=== PATIENT | female | born 1995 | race Caucasian/White ===

== ENCOUNTER 2020-09-07 22:07 | Emergency (ER) | payer OTHER ==
[~2020-09-07] VITALS: Ht 147.3 cm; Wt 115.0 kg
[2020-09-07 22:07] VITALS: BP 129/72
--- NOTE | 2020-09-07 23:36 | RAD ---
Exam: Left foot 3 views INDICATION: Laceration to dorsal aspect of the left foot after fall TECHNIQUE: Frontal, lateral and oblique views of the left foot Comparisons: None FINDINGS: Bone mineralization is normal. No acute or healed fractures. Soft tissues are unremarkable. Joint spa gaurav are well-maintained. IMPRESSION: No acute osseous abnormality. Electronically signed by: Elsy Oh MD (09/07/2020 11:34 PM) MJ
[2020-09-08] MEDS ORDERED: LIDOCAINE 1%/EPI 1:100,000 20 ML VIAL. SQ ONE
[2020-09-08] MEDS ORDERED: CEPH-264 PO (00:22)
--- NOTE | 2020-09-08 00:23 | ED.ADGEN ---
Past Medical History Past Medical History: Anemia Past Surgical History: Smoking Status: Never Smoker Alcohol Use: None General Adult EDM: Chief Complaint: LACERATION/AVULSION HPI: HPI: Patient is a 25 year old female, who presents to the emergency department via EMS with reports of a laceration to the top of her left foot. Patient states she was standing on a table that had a glass insert when her foot went through the glass insert. She denies any loss of consciousness. She denies any decreased sensation, numbness, tingling, or decreased range of motion of the affected foot. Patient reports her last tetanus was less than 5 years ago. She currently rates her pain a 10 out of 10 on pain scale, patient reports the discomfort increases with movement and palpation, she denies any alleviating factors. Patient states she is currently 6 days , she had a at [facility], she denies any abdominal pain or injury to her C- section site. Review of Systems: Review of Systems: Complete ROS is negative unless otherwise noted in HPI. Current Medications: Current Medications Medications (Trade) Dose Ordered Sig/Rakesh Start Time Stop Time Status Last Admin Dose Admin Lidocaine/ Epinephrine (LIDOCAINE 1%-EPI 1:100,000 Multi-Dose) 20 ml 1X ONCE 09/08/20 00:00 09/08/20 00:01 DC 09/07/20 23:46 20 ML Allergies: Allergies: Allergies Coded Allergies Type Severity Reaction Last Updated Verified No Known Drug Allergies 09/07/20 No Physical Exam: PE: See Above Constitutional: Well developed, well nourished, no acute distress, non-toxic appearance. [] HENT: Normocephalic, atraumatic, bilateral external ears normal, nose normal. [] Eyes: PERRLA, EOMI, conjunctiva normal, no discharge. [] Neck: Normal range of motion, no stridor. [] Cardiovascular:Heart rate regular rhythm Lungs & Thorax: Respirations even and unlabored, no retractions, no respiratory distress Skin: Warm, dry, no erythema, no rash; 10 cm laceration to the dorsal surface of the left foot, no visible foreign bodies, bleeding controlled bandage in place; there is 1/2 cm x 1 cm avulsion to the distal plantar aspect of the left fourth toe, no visible foreign body, no active bleeding.. [] Extremities: No cyanosis, ROM intact, 2+ edema BLE; left foot full extension, full flexion, 2+ pedal and posterior tibial pulses, cap refill less than 2 seconds, sensation intact. Neurologic: Alert and oriented X 3, no focal deficits noted. [] Psychologic: Affect normal, judgement normal, mood normal. [] Current Patient Data: Vital Signs: Vital Signs Date Time Temp Pulse Resp B/P (MAP) Pulse Ox O2 Delivery O2 Flow Rate FiO2 09/07/20 22:07 98.7 90 20 129/72 (91) 98 Room Air 98.7 EKG: EKG: [] Heart Score: Risk Factors: Risk Factors: DM, Current or recent (<one month) smoker, HTN, HLP, family history of CAD, obesity. Risk Scores: Score 0 - 3: 2.5% MACE over next 6 weeks - Discharge Home Score 4 - 6: 20.3% MACE over next 6 weeks - Admit for Clinical Observation Score 7 - 10: 72.7% MACE over next 6 weeks - Early Invasive Strategies Radiology/Procedures: Radiology/Procedures: PROCEDURE: FOOT LEFT 3V Exam: Left foot 3 views INDICATION: Laceration to dorsal aspect of the left foot after fall TECHNIQUE: Frontal, lateral and oblique views of the left foot Comparisons: None FINDINGS: Bone mineralization is normal. No acute or healed fractures. Soft tissues are unremarkable. Joint spaces are well-maintained. IMPRESSION: No acute osseous abnormality.[] Laceration Repair by me: Anesthesia: 1% lidocaine locally with epinephrine Location: Volar aspect of left foot Tendon/Joint/Nerves: No injury Foreign body: None detected after copious irrigation and exploration with NS and chlorhexidine Technique: 21 simple Interrupted Sutures with 4-0 Ethilon Complexity: No subcutaneous sutures/mucosal repair/edge excision Post Closure Length: 10 cm Patient's bleeding was easily controlled in the department and there is no indication of anemia. No evidence of compartment syndrome, neurologic injury, vascular injury, open joint, tendon laceration, or foreign body. Patient is appropriate for outpatient follow up. Scar minimazation instructions given. [] Course & Med Decision Making: Course & Med Decision Making Pertinent Labs and Imaging studies reviewed. (See chart for details) [] Dragon Disclaimer: Dragon Disclaimer: This electronic medical record was generated, in whole or in part, using a voice recognition dictation system. Departure Departure Impression: Primary Impression: Laceration of left foot excluding toes without complication Additional Impression: Avulsion of skin of toe Disposition: 01 DC HOME SELF CARE/HOMELESS Condition: STABLE Referrals: NO PCP (PCP) Patient Instructions: Laceration Care, Adult, [id number] Additional Instructions: Fill the prescription and use it as directed. Keep the area clean and dry. You may take Tylenol or ibuprofen as needed for pain. Keep the dressing that was placed today on for 24 hours then change the dressing twice a day and as needed. Do not submerge your foot in water and wear the postop shoe until the sutures have been removed. Follow-up with your primary care doctor, or return to the emergency room in 10-14 days to have the sutures removed, sooner if you develop signs of infection including: redness, warmth, drainage, or a fever. Scripts Cephalexin (KEFLEX) 500 Mg Capsule 500 MG PO QID for 7 Days, #28 CAP 0 Refills Prov: VIPUL ETIENNE [employer]AT [employer]ER 09/08/20 Problem Qualifiers Primary Impression: Laceration of left foot excluding toes without complication Encounter type: initial encounter Qualified Codes: S91.312A - Laceration without foreign body, left foot, initial encounter Additional Impression: Avulsion of skin of toe Encounter type: initial encounter Qualified Codes: S91.109A - Unspecified open wound of unspecified toe(s) without damage to nail, initial encounter VIPUL ETIENNE [employer]ER Sep 08, 2020 00:23
== END 2020-09-08 01:33 | disposition home or self-care (01) ==
LOC: ER 22:07
DX: O9A.23 Injury, poisoning and certain other consequences of external causes complicating the puerperium (principal); S91.312A Laceration without foreign body, left foot, initial encounter; W25.XXXA Contact with sharp glass, initial encounter; Y93.89 Activity, other specified; Y92.89 Other specified places as the place of occurrence of the external cause; Y99.8 Other external cause status
CPT/HCPCS: 12004; 73630; 99283; J3490